=== PATIENT | male | born 1960 | race Caucasian/White ===

== ENCOUNTER 2016-09-16 13:42 | Emergency (ER) | payer MEDICARE ==
[~2016-09-16] VITALS: Ht 188 cm; Wt 90.7 kg
[2016-09-16] MEDS ORDERED: METO50TA2 PO (14:04)
[2016-09-16] MEDS ORDERED: GABA300C10 PO (14:04)
[2016-09-16] MEDS ORDERED: CITA40TA5 PO (14:04)
[2016-09-16] MEDS ORDERED: BACL10TA PO (14:04)
[2016-09-16] MEDS ORDERED: SIMV40TA3 PO (14:04)
[2016-09-16] MEDS ORDERED: BUDE10.2 IH (14:04)
[2016-09-16] MEDS ORDERED: IBUP800T PO (14:04)
[2016-09-16] MEDS ORDERED: ALBU90AE IH (14:04)
[2016-09-16] MEDS ORDERED: HYDR-922 PO (14:04)
[2016-09-16] MEDS ORDERED: TEMA30CA PO (14:04)
[2016-09-16] MEDS ORDERED: HYDR25TA9 PO (14:04)
--- NOTE | 2016-09-16 14:32 | ER.PDOC ---
General Chief Complaint: Extremities Stated Complaint: FOOT INJURY Time seen by MD: 12:31 Source: patient Exam Limitations: no limitations History of Present Illness Initial Comments Right foot pain, twisted it 10 days ago. Severity: moderate Context: twist Modifying Factors: pain on movement Allergies: Coded Allergies: No Known Allergies (Unverified , 09/16/16) Home Meds Reported Medications Albuterol Sulfate (Proair Respiclick)90 Mcg Aer.pow.[id number] Mcg IH PRN PRN SHORTNESS OF BREATH 09/16/16 Budesonide/Formoterol Fumarate (Symbicort 160-4.5 Mcg Inhaler)10.2 Gm Hfa.aer.ad2 Puff IH BID #10.6 GRAM Ref 3 09/16/16 Citalopram Hydrobromide (Citalopram Hbr)40 Mg Tablet1 Tab PO DAILY #90 TAB Ref 1 09/16/16 Ibuprofen 800 Mg Tablet1 Tab PO Q6HR PRN PAIN #90 TAB Ref 1 09/16/16 Temazepam 30 Mg Capsule1 Cap PO HS #30 CAP Ref 1 09/16/16 Simvastatin 40 Mg Tablet1 Tab PO HS #30 TAB Ref 5 09/16/16 Metoprolol Tartrate 50MG ([place] 50MG)50 Mg Tablet1 Tab PO BID #60 TAB Ref 5 09/16/16 Hydrochlorothiazide 25 Mg Tablet1 Tab PO BID #30 TAB Ref 5 09/16/16 Baclofen 10 Mg Tablet1 Tab PO TID #90 TAB Ref 2 09/16/16 Gabapentin 300 Mg Capsule1 Cap PO TID #90 CAP Ref 5 09/16/16 Hydrocodone Bit/Acetaminophen ([place] 10-325 Tablet)10-325 T1 Ea Tab1 Tab PO QID #120 TAB 09/16/16 Past Medical History Medical History: high cholesterol, hypertension Surgical History: neck Social History Smoking: cigarettes, less than 1 pack/day Alcohol Use: occasionally Drug Use: none Review of Systems Constitutional: no symptoms reported Respiratory: no symptoms reported Cardiovascular: no symptoms reported Gastrointestinal: no symptoms reported Genitourinary: no symptoms reported Musculoskeletal: see HPI All Other Systems: Reviewed and Negative Physical Exam General Appearance: Alert, No Apparent Distress Foot: tenderness (right), swelling (right) Ankle: nml inspection, non-tender, nml ROM, no joint swelling, skin intact Gait: limited by pain Neuro: sensation nml, motor nml Vascular: no vascular compromise Tendons: tendon function nml Leg/Knee/Thigh: uninjured above ankle Head/ENT: nml inspection, pharynx nml Neck/Back: nml inspection, non-tender Resp/CVS: no resp distress Abdomen: non-tender, no organomegaly EKG/XRAY/CT/US XRAY Comments: No osseous abnormality of right foot Departure Time of Disposition: 13:09 Disposition: 01 HOME, SELF-CARE Impression: Primary Impression: Right foot injury Condition: Stable Referrals: PCP,UNKNOWN (PCP) PRIMARY CARE PROVIDER Additional Instructions: Continue pain medications at home F/U with Dr. Ibarra in 1 week Problem Qualifiers Primary Impression: Right foot injury Encounter type: initial encounter Qualified Code: S99.921A - Unspecified injury of right foot, initial encounter ИРИНА LAZCANO MD Sep 16, 2016 14:32
--- NOTE | 2016-09-16 14:57 | DIREP ---
PROCEDURE:XRAY FOOT MIN 3 VWS-RT COMPARISON:None. INDICATIONS:right foot pain, twisted it 10 days ago. FINDINGS: BONES:Small calcaneal plantar spur. Small ossicle or remote trauma at the lateral malleolus. JOINTS:Normal. SOFT TISSUES:Normal. OTHER:No additional findings. CONCLUSION:No acute osseous findings. Mild degenerative changes. Dictated by: Myron Castrejon M.D. on 09/16/2016 at 02:56 PM
== END 2016-09-16 15:15 | disposition home or self-care (01) ==
LOC: ER 13:42
DX: S99.921A Unspecified injury of right foot, initial encounter (principal); E78.00 Pure hypercholesterolemia, unspecified; I10 Essential (primary) hypertension; F17.210 Nicotine dependence, cigarettes, uncomplicated; X50.9XXA Other and unspecified overexertion or strenuous movements or postures, initial encounter; Y93.89 Activity, other specified; Y92.89 Other specified places as the place of occurrence of the external cause; Y99.8 Other external cause status
CPT/HCPCS: 99284; 73630-RT